=== PATIENT | female | born 1965 | race African-American/Black ===

== ENCOUNTER 2016-12-07 15:42 | Inpatient (IN) | payer OTHER ==
[2016-12-07 17:28] VITALS: BMI 24.0
--- NOTE | 2016-12-07 19:47 | HP ---
CIWA Score - CIWA Score Nausea/Vomitin-Mild Nausea/No Vomiting Muscle Tremors: 4-Moderate,w/Arms Extend Anxiety: 4-Mod. Anxious/Guarded Agitation: 4-Moderately Restless Paroxysmal Sweats: 1-Minimal Palms Moist Orientation: 1-Uncertain about Date Tacttile Disturbances: 0-None Auditory Disturbances: 0-None Visual Disturbances: 0-None Headache: 1-Very Mild CIWA-Ar Total Score: 16 Admission ROS BHS - HPI Chief Complaint: withdrawal sx Allergies/Adverse Reactions: Allergies Allergy/AdvReac Type Severity Reaction Status Date / Time Penicillins Allergy Severe Hives Verified 12/07/16 19:21 History of Present Illness: 51 years old female with long history of alcohol cocaine marijuana nicotine dependence has positive ppd denies mental illness is admitted to detox Exam Limitations: No Limitations - Ebola screening Have you traveled outside of the country in the last 21 days: No Have you had contact with anyone from an Ebola affected area: No Have you been sick,other than usual withdrawal symptoms: No Do you have a fever: No - Review of Systems Constitutional: Chills, Loss of Appetite, Changes in sleep, Unintentional Wgt. Loss, Unexplained wgt Loss EENT: reports: Other (glaucoma right eye no treatment) Respiratory: reports: No Symptoms reported Cardiac: reports: No Symptoms Reported GI: reports: Nausea, Poor Appetite, Poor Fluid Intake, Abdominal cramping : reports: No Symptoms Reported Musculoskeletal: reports: No Symptoms Reported Integumentary: reports: No Symptoms Reported Neuro: reports: Tremors Endocrine: reports: No Symptoms Reported Hematology: reports: No Symptoms Reported Psychiatric: reports: No Sypmtoms Reported, Judgement Intact, Mood/Affect Appropiate Other Systems: Reviewed and Negative Patient History - Patient Medical History Hx Anemia: No Hx Asthma: No Hx Chronic Obstructive Pulmonary Disease (COPD): No Hx Cancer: No Hx Cardiac Disorders: No Hx Congestive Heart Failure: No Hx Hypertension: No Hx Hypercholesterolemia: No Hx Pacemaker: No HX Cerebrovascular Accident: No Hx Seizures: No Hx Dementia: No Hx Diabetes: No Hx Gastrointestinal Disorders: No Hx Liver Disease: No Hx Genitourinary Disorders: No Hx Sexually Transmitted Disorders: No Hx Renal Disease (ESRD): No Hx Thyroid Disease: No Hx Human Immunodeficiency Virus (HIV): No Hx Hepatitis C: No Hx Depression: No Hx Suicide Attempt: No Hx Bipolar Disorder: No Hx Schizophrenia: No - Patient Surgical History Past Surgical History: No - PPD History Previous Implant?: Yes Documented Results: Positive w/o proof Implanted On Prior [facility] Admission?: No Results: Hx. Positive PPD to be Administered?: No - Reproductive History Patient is a Female of Child Bearing Age (11 -55 yrs old): Yes Last Menstrual Period: 02/17/15 Patient : No - Smoking Cessation Smoking history: Current every day smoker Have you smoked in the past 12 months: Yes Aproximately how many cigarettes per day: 20 Cigars Per Day: 0 Hx Chewing Tobacco Use: No Initiated information on smoking cessation: Yes 'Breaking Loose' booklet given: 12/07/16 - Substance & Tx. History Hx Alcohol Use: Yes Hx Substance Use: Yes Substance Use Type: Alcohol, Cocaine, Marijuana Hx Substance Use Treatment: No - Substances Abused Alcohol Route: Oral Frequency: Daily Amount used: Vodka 1 pint, beer 6 pack Age of first use: 19 Date of Last Use: 12/06/16 Cocaine Route: Smoking Frequency: Daily Amount used: $200 Age of first use: 25 Date of Last Use: 12/06/16 Family Disease History - Family Disease History Family Disease History: Heart Disease: Mother, [place]: Mother, Sister, Other: Father (), Brother (no contact) Admission Physical Exam S - Vital Signs Vital Signs: Vital Signs - 24 hr 12/07/16 17:23 Temperature 96.3 F L Pulse Rate 59 L Respiratory 18 Rate Blood Pressure 109/42 - Physical General Appearance: Yes: Appropriately Dressed, Mild Distress, Thin, Tremorous, Irritable, Sweating, Anxious HEENTM: Yes: Hearing grossly Normal, Normal ENT Inspection, Normocephalic, Normal Voice Respiratory: Yes: Chest Non-Tender, Lungs Clear, Normal Breath Sounds, No Respiratory Distress, No Accessory Muscle Use Neck: Yes: Supple, Trachea in good position Breast: Yes: Breasts Symetrical Cardiology: Yes: Regular Rhythm, S1, S2, Bradycardia Abdominal: Yes: Non Tender, Soft Genitourinary: Yes: Within Normal Limits Back: Yes: Normal Inspection Musculoskeletal: Yes: full range of Motion, Gait Steady Extremities: Yes: Normal Inspection, Normal Range of Motion, Non-Tender, Tremors Neurological: Yes: Alert, Motor Strength 5/5, Normal Mood/Affect, Normal Response Integumentary: Yes: Warm Lymphatic: Yes: Within Normal Limits - Diagnostic (1) Alcohol dependence with uncomplicated withdrawal Current Visit: Yes Status: Acute (2) Positive PPD, treated Current Visit: Yes Status: Resolved (3) Nicotine dependence Current Visit: Yes Status: Acute Qualifiers: Nicotine product type: cigarettes Substance use status: in withdrawal Qualified Code(s): F17.213 - Nicotine dependence, cigarettes, with withdrawal Cleared for Admission [facility] - Detox or Rehab [facility] Level of Care: Medically Managed Detox Regimen/Protocol: Librium [facility] Breath Alcohol Content Breath Alcohol Content: 0 Urine Pregancy Test - Result Urine Test Results: Negative- NO Line Present Urine Drug Screen - Results Drug Screen Negative: No Urine Drug Screen Results: THC-Marijuana, NAWAF-Cocaine
[2016-12-07] MEDS ORDERED: MENTHOL/PHENOL 1 EACH UD MM PRN (19:53)
[2016-12-07] MEDS ORDERED: ACETAMINOPHEN 325 MG TABLET (FP) PO PRN (19:53)
[2016-12-07] MEDS ORDERED: chlordiazePOXIDE HCL 25 MG CAPSULE PO PRN (19:53)
[2016-12-07] MEDS ORDERED: MAG HYDROX/AL HYDROX/SIMETH 30 ML UNIT-DOSE CUP PO PRN (19:53)
[2016-12-07] MEDS ORDERED: IBUPROFEN 400 MG TABLET (FP) PO PRN (19:53)
[2016-12-07] MEDS ORDERED: hydrOXYzine PAMOATE 50 MG CAPSULE (FP) PO PRN (19:53)
[2016-12-07] MEDS ORDERED: NICOTINE POLACRILEX 4 MG GUM BC PRN (19:53)
[2016-12-07] MEDS ORDERED: MAGNESIUM HYDROX 2400MG/30ML ORAL SUSPENSION 30 ML CUP PO PRN (19:53)
[2016-12-07] MEDS ORDERED: MAGNESIUM CITRATE 300 ML BOTTLE PO PRN (19:53)
[2016-12-07] MEDS ORDERED: P-EPHED 60MG/TRIPROLIDI 2.5MG TABLET PO PRN (19:53)
[2016-12-07] MEDS ORDERED: diphenhydrAMINE HCL 50 MG CAPSULE PO PRN (19:53)
[2016-12-07] MEDS ORDERED: guaiFENesin/D-METHORPHAN HB 10 ML UNIT-DOSE CUPS PO PRN (19:53)
[2016-12-07] MEDS ORDERED: LOPERAMIDE HCL 2 MG CAPSULE PO PRN (19:53)
[2016-12-07] MEDS ORDERED: NICOTINE 21 MG/24 HOURS TOPICAL PATCH TD PRN (19:55)
[2016-12-07] MEDS: THIAMINE HCL 100 MG TABLET (FP) PO SCH (23:47)
[2016-12-07] MEDS: chlordiazePOXIDE HCL 25 MG CAPSULE PO SCH (23:47)
[2016-12-08 02:35] LABS: URINE APPEARANCE CLOUDY; URINE BILIRUBIN NEGATIVE (NEGATIVE); URINE BLOOD NEGATIVE (NEGATIVE); URINE COLOR YELLOW; URINE GLUCOSE (UA) NEGATIVE (NEGATIVE); URINE KETONE NEGATIVE (NEGATIVE); URINE NITRITE NEGATIVE (NEGATIVE); URINE PROTEIN NEGATIVE (NEGATIVE); URINE UROBILINOGEN NEGATIVE E.U./dl (0.2-1.0)
[2016-12-08 02:37] LABS: URINE LEUK ESTERASE 1+ (NEGATIVE)
[2016-12-08 02:44] LABS: URIC ACID CRYSTALS RARE /hpf (NONE SEEN); URINE BACTERIA FEW /hpf (NONE SEEN); URINE MUCUS RARE; URINE RBC <1 /hpf (0-3); URINE WBC 13 /hpf (3-5)
[2016-12-08] MEDS: chlordiazePOXIDE HCL 25 MG CAPSULE PO SCH ×4 (06:10→22:08)
--- NOTE | 2016-12-08 09:38 | PN ---
[facility] CIWA - CIWA Score Nausea/Vomitin Muscle Tremors: 2 Anxiety: 2 Agitation: 2 Paroxysmal Sweats: 3 Orientation: 0-Oriented Tacttile Disturbances: 1-Very Mild Itch/Numbness Auditory Disturbances: 0-None Visual Disturbances: 0-None Headache: 0-None Present CIWA-Ar Total Score: 12 [facility] Progress Note (SOAP) Subjective: interrupted sleep, sweats, Objective: 12/08/16 09:37 Last Vital Signs Temp Pulse Resp BP Pulse Ox 97.9 F 52 L 18 118/67 12/08/16 06:00 12/08/16 06:00 12/08/16 06:00 12/08/16 06:00 Laboratory Tests 12/08/16 00:27 Urine Color Yellow Urine Appearance Cloudy Urine pH 5.0 Urine Protein Negative Urine Glucose (UA) Negative Urine Ketones Negative Urine Blood Negative Urine Nitrite Negative Urine Bilirubin Negative Urine Urobilinogen Negative Ur Leukocyte Esterase 1+ H Urine RBC <1 Urine WBC 13 Ur Epithelial Cells Moderate Uric Acid Crystals Rare Urine Bacteria Few Urine Mucus Rare Laboratory Tests 12/08/16 12/08/16 12/08/16 00:27 07:00 07:00 WBC 4.6 RBC 4.44 Hgb 12.2 Hct 38.4 MCV 86.5 MCHC 31.8 L RDW 15.0 Plt Count 199 MPV 9.3 Sodium Potassium Chloride Carbon Dioxide Anion Gap BUN Creatinine Creat Clearance w eGFR Random Glucose Calcium Total Bilirubin AST ALT Alkaline Phosphatase Total Protein Albumin Urine Color Yellow Urine Appearance Cloudy Urine pH 5.0 Ur Specific [place] 1.025 Urine Protein Negative Urine Glucose (UA) Negative Urine Ketones Negative Urine Blood Negative Urine Nitrite Negative Urine Bilirubin Negative Urine Urobilinogen Negative Ur Leukocyte Esterase 1+ H Urine RBC <1 Urine WBC 13 Ur Epithelial Cells Moderate Uric Acid Crystals Rare Urine Bacteria Few Urine Mucus Rare RPR Titer HIV 1&2 Antibody Screen Negative HIV P24 Antigen Negative 12/08/16 12/08/16 07:00 07:00 WBC RBC Hgb Hct MCV MCHC RDW Plt Count MPV Sodium 143 Potassium 3.9 Chloride 107 Carbon Dioxide 32 Anion Gap 4 L BUN 18 Creatinine 0.8 Creat Clearance w eGFR > 60 Random Glucose 80 Calcium 9.7 Total Bilirubin 0.4 AST 13 L ALT 21 Alkaline Phosphatase 73 Total Protein 6.4 Albumin 3.4 Urine Color Urine Appearance Urine pH Ur Specific [place] Urine Protein Urine Glucose (UA) Urine Ketones Urine Blood Urine Nitrite Urine Bilirubin Urine Urobilinogen Ur Leukocyte Esterase Urine RBC Urine WBC Ur Epithelial Cells Uric Acid Crystals Urine Bacteria Urine Mucus RPR Titer Nonreactive HIV 1&2 Antibody Screen HIV P24 Antigen pt aox3 in nad ambulating Assessment: 12/08/16 13:14 withdrawal sx's abn. ua Plan: withdrawal sx's cont. detox increase fluids ua
[2016-12-08 10:07] LABS: MCH 27.6 pg (25.7-33.7); MCHC 31.8 g/dl (32.0-36.0); MEAN CELL VOLUME 86.5 fl (80-96); MEAN PLT VOLUME 9.3 fl (7.5-11.1); PLATELET COUNT 199 K/MM3 (134-434); WHITE BLOOD COUNT 4.6 K/mm3 (4.0-10.0)
[2016-12-08] MEDS: PRENATAL VITAMINS W/ FOLIC ACID TABLET (FP) PO SCH (10:34)
[2016-12-08 10:41] LABS: HIV 1 & 2 AB NEGATIVE; HIV 1 AGp24 NEGATIVE
[2016-12-08 10:56] LABS: ALBUMIN 3.4 g/dl (3.4-5.0); ALK PHOS 73 U/L (45-117); ANION GAP 4 (8-16); BILIRUBIN,TOTAL 0.4 mg/dL (0.2-1.0); CALCIUM 9.7 mg/dL (8.5-10.1); CO2 32 mmol/L (21-32); CREATININE 0.8 mg/dL (0.55-1.02); GLUCOSE,RANDOM 80 mg/dL (74-106); SGOT/AST 13 U/L (15-37); SGPT/ALT 21 U/L (12-78); TOT PROT 6.4 g/dl (6.4-8.2)
--- NOTE | 2016-12-08 15:50 | EKG ---
Test Reason : Blood Pressure : / mmHG Vent. Rate : 057 BPM Atrial Rate : 057 BPM P-R Int : 154 ms QRS Dur : 086 ms QT Int : 464 ms P-R-T Axes : 066 072 056 degrees QTc Int : 451 ms SINUS BRADYCARDIA POSSIBLE LEFT ATRIAL ENLARGEMENT BORDERLINE ECG NO PREVIOUS ECGS AVAILABLE Confirmed by COLLINS MAJOR, GISELA ([id number]) on 12/08/2016 3:50:11 PM Referred By: Confirmed By:GISELA GUADALUPE MD
[2016-12-08] MEDS: THIAMINE HCL 100 MG TABLET (FP) PO SCH (22:08)
[2016-12-09] MEDS: chlordiazePOXIDE HCL 25 MG CAPSULE PO SCH ×3 (07:47→18:21)
--- NOTE | 2016-12-09 09:59 | PN ---
[facility] CIWA - CIWA Score Nausea/Vomitin-No Nausea/No Vomiting Muscle Tremors: 3 Anxiety: 4-Mod. Anxious/Guarded Agitation: 3 Paroxysmal Sweats: 3 Orientation: 0-Oriented Tacttile Disturbances: 0-None Auditory Disturbances: 0-None Visual Disturbances: 0-None Headache: 0-None Present CIWA-Ar Total Score: 13 S Progress Note (SOAP) Subjective: Sweating,interrupted sleep,restless,tremors,anxiety Objective: 12/09/16 09:57 Vital Signs - 8 hr 12/09/16 12/09/16 03:30 06:00 Temperature 96.4 F L Pulse Rate 57 L Respiratory 18 18 Rate Blood Pressure 113/67 Laboratory Last Values WBC 4.6 K/mm3 (4.0-10.0) 12/08/16 07:00 RBC 4.44 M/mm3 (3.60-5.2) 12/08/16 07:00 Hgb 12.2 GM/dL (10.7-15.3) 12/08/16 07:00 Hct 38.4 % (32.4-45.2) 12/08/16 07:00 MCV 86.5 fl (80-96) 12/08/16 07:00 MCHC 31.8 g/dl (32.0-36.0) L 12/08/16 07:00 RDW 15.0 % (11.6-15.6) 12/08/16 07:00 Plt Count 199 K/MM3 (134-434) 12/08/16 07:00 MPV 9.3 fl (7.5-11.1) 12/08/16 07:00 Sodium 143 mmol/L (136-145) 12/08/16 07:00 Potassium 3.9 mmol/L (3.5-5.1) 12/08/16 07:00 Chloride 107 mmol/L (98-107) 12/08/16 07:00 Carbon Dioxide 32 mmol/L (21-32) 12/08/16 07:00 Anion Gap 4 (8-16) L 12/08/16 07:00 BUN 18 mg/dL (7-18) 12/08/16 07:00 Creatinine 0.8 mg/dL (0.55-1.02) 12/08/16 07:00 Creat Clearance w eGFR > 60 (>60) 12/08/16 07:00 Random Glucose 80 mg/dL (74-106) 12/08/16 07:00 Calcium 9.7 mg/dL (8.5-10.1) 12/08/16 07:00 Total Bilirubin 0.4 mg/dL (0.2-1.0) 12/08/16 07:00 AST 13 U/L (15-37) L 12/08/16 07:00 ALT 21 U/L (12-78) 12/08/16 07:00 Alkaline Phosphatase 73 U/L (45-117) 12/08/16 07:00 Total Protein 6.4 g/dl (6.4-8.2) 12/08/16 07:00 Albumin 3.4 g/dl (3.4-5.0) 12/08/16 07:00 Urine Color Yellow 12/08/16 00:27 Urine Appearance Cloudy 12/08/16 00:27 Urine pH 5.0 (5.0-8.0) 12/08/16 00:27 Ur Specific [place] 1.025 (1.005-1.025) 12/08/16 00:27 Urine Protein Negative (NEGATIVE) 12/08/16 00:27 Urine Glucose (UA) Negative (NEGATIVE) 12/08/16 00:27 Urine Ketones Negative (NEGATIVE) 12/08/16 00:27 Urine Blood Negative (NEGATIVE) 12/08/16 00:27 Urine Nitrite Negative (NEGATIVE) 12/08/16 00:27 Urine Bilirubin Negative (NEGATIVE) 12/08/16 00:27 Urine Urobilinogen Negative E.U./dl (0.2-1.0) 12/08/16 00:27 Ur Leukocyte Esterase 1+ (NEGATIVE) H 12/08/16 00:27 Urine RBC <1 /hpf (0-3) 12/08/16 00:27 Urine WBC 13 /hpf (3-5) 12/08/16 00:27 Ur Epithelial Cells Moderate /hpf (FEW) 12/08/16 00:27 Uric Acid Crystals Rare /hpf (NONE SEEN) 12/08/16 00:27 Urine Bacteria Few /hpf (NONE SEEN) 12/08/16 00:27 Urine Mucus Rare 12/08/16 00:27 RPR Titer Nonreactive (NONREACTIVE) 12/08/16 07:00 Hepatitis C Antibody <0.1 s/co ratio (0.0-0.9) 12/07/16 07:00 HIV 1&2 Antibody Screen Negative 12/08/16 07:00 HIV P24 Antigen Negative 12/08/16 07:00 labs noted Assessment: 12/09/16 09:58 Withdrawal sx. Plan: Continue detox
[2016-12-09] MEDS: PRENATAL VITAMINS W/ FOLIC ACID TABLET (FP) PO SCH (10:40)
[2016-12-09 19:33] LABS: URINE APPEARANCE CLEAR; URINE BILIRUBIN NEGATIVE (NEGATIVE); URINE BLOOD NEGATIVE (NEGATIVE); URINE COLOR LTYELLOW; URINE GLUCOSE (UA) NEGATIVE (NEGATIVE); URINE KETONE NEGATIVE (NEGATIVE); URINE LEUK ESTERASE NEGATIVE (NEGATIVE); URINE NITRITE NEGATIVE (NEGATIVE); URINE PROTEIN NEGATIVE (NEGATIVE); URINE UROBILINOGEN NEGATIVE E.U./dl (0.2-1.0)
[2016-12-09] MEDS: chlordiazePOXIDE 5 MG CAPSULE PO SCH (22:05)
[2016-12-09] MEDS: THIAMINE HCL 100 MG TABLET (FP) PO SCH (22:05)
[2016-12-10] MEDS: chlordiazePOXIDE 5 MG CAPSULE PO SCH ×3 (06:27→16:49)
[2016-12-10] MEDS: PRENATAL VITAMINS W/ FOLIC ACID TABLET (FP) PO SCH (10:34)
--- NOTE | 2016-12-10 11:33 | PN ---
[facility] Progress Note (SOAP) Subjective: ALERT,IRRITABLE,INTERRUPTED SLEEP Objective: 12/10/16 11:32 Vital Signs Temperature 100.8 F H 12/10/16 10:18 Pulse Rate 89 12/10/16 10:18 Respiratory Rate 18 12/10/16 10:18 Blood Pressure 125/76 12/10/16 10:18 O2 Sat by Pulse Oximetry (%) Assessment: 12/10/16 11:32 WITHDRAWAL SYMPTOM Plan: CONTINUE DETOX
[2016-12-10] MEDS: chlordiazePOXIDE HCL 10 MG CAPSULE PO SCH (22:11)
[2016-12-10] MEDS: THIAMINE HCL 100 MG TABLET (FP) PO SCH (22:11)
[2016-12-11] MEDS: chlordiazePOXIDE HCL 10 MG CAPSULE PO SCH ×3 (06:00→17:45)
[2016-12-11] MEDS: PRENATAL VITAMINS W/ FOLIC ACID TABLET (FP) PO SCH (10:38)
--- NOTE | 2016-12-11 12:26 | DS ---
[facility] Detox Discharge Summary Admission Date: 12/07/16 Discharge Date: 12/11/16 - History Present History: Alcohol Dependence Additional Comments: ADVISED PATIENT TO FOLLOW-UP WITH [facility]INE [employer] FREQUENCY CHECKER / REHAB MEDICAL PROVIDER AFTER DISCHARGE FROM DETOX [facility]. Pertinent Past History: History of Positive PPD (Treated). - Physical Exam Results Vital Signs: Vital Signs Temperature 97.7 F 12/11/16 06:00 Pulse Rate 50 L 12/11/16 06:00 Respiratory Rate 18 12/11/16 06:00 Blood Pressure 105/66 12/11/16 06:00 O2 Sat by Pulse Oximetry (%) Pertinent Admission Physical Exam Findings: WITHDRAWAL SYMPTOMS. Laboratory Tests 12/07/16 12/08/16 12/08/16 07:00 00:27 07:00 WBC RBC Hgb Hct MCV MCHC RDW Plt Count MPV Sodium Potassium Chloride Carbon Dioxide Anion Gap BUN Creatinine Creat Clearance w eGFR Random Glucose Calcium Total Bilirubin AST ALT Alkaline Phosphatase Total Protein Albumin Urine Color Yellow Urine Appearance Cloudy Urine pH 5.0 Ur Specific [place] 1.025 Urine Protein Negative Urine Glucose (UA) Negative Urine Ketones Negative Urine Blood Negative Urine Nitrite Negative Urine Bilirubin Negative Urine Urobilinogen Negative Ur Leukocyte Esterase 1+ H Urine RBC <1 Urine WBC 13 Ur Epithelial Cells Moderate Uric Acid Crystals Rare Urine Bacteria Few Urine Mucus Rare RPR Titer Hepatitis C Antibody <0.1 HIV 1&2 Antibody Screen Negative HIV P24 Antigen Negative 12/08/16 12/08/16 12/08/16 07:00 07:00 07:00 WBC 4.6 RBC 4.44 Hgb 12.2 Hct 38.4 MCV 86.5 MCHC 31.8 L RDW 15.0 Plt Count 199 MPV 9.3 Sodium 143 Potassium 3.9 Chloride 107 Carbon Dioxide 32 Anion Gap 4 L BUN 18 Creatinine 0.8 Creat Clearance w eGFR > 60 Random Glucose 80 Calcium 9.7 Total Bilirubin 0.4 AST 13 L ALT 21 Alkaline Phosphatase 73 Total Protein 6.4 Albumin 3.4 Urine Color Urine Appearance Urine pH Ur Specific [place] Urine Protein Urine Glucose (UA) Urine Ketones Urine Blood Urine Nitrite Urine Bilirubin Urine Urobilinogen Ur Leukocyte Esterase Urine RBC Urine WBC Ur Epithelial Cells Uric Acid Crystals Urine Bacteria Urine Mucus RPR Titer Nonreactive Hepatitis C Antibody HIV 1&2 Antibody Screen HIV P24 Antigen 12/09/16 Unknown WBC RBC Hgb Hct MCV MCHC RDW Plt Count MPV Sodium Potassium Chloride Carbon Dioxide Anion Gap BUN Creatinine Creat Clearance w eGFR Random Glucose Calcium Total Bilirubin AST ALT Alkaline Phosphatase Total Protein Albumin Urine Color Ltyellow Urine Appearance Clear Urine pH 7.0 D Ur Specific [place] 1.015 Urine Protein Negative Urine Glucose (UA) Negative Urine Ketones Negative Urine Blood Negative Urine Nitrite Negative Urine Bilirubin Negative Urine Urobilinogen Negative Ur Leukocyte Esterase Negative Urine RBC Urine WBC Ur Epithelial Cells Uric Acid Crystals Urine Bacteria Urine Mucus RPR Titer Hepatitis C Antibody HIV 1&2 Antibody Screen HIV P24 Antigen LABS NOTED. - Treatment Hospital Course: Detox Protocol Followed, Detoxed Safely, Responded well, Discharged Condition Good, Rehab Referral Accepted Patient [facility] - Medication Discharge Medications: Ambulatory Orders NK [No Known Home Medication] 12/07/16 - Diagnosis (1) Alcohol dependence with uncomplicated withdrawal Current Visit: Yes Status: Acute (2) Nicotine dependence Current Visit: Yes Status: Chronic Qualifiers: Nicotine product type: cigarettes Substance use status: in withdrawal Qualified Code(s): F17.213 - Nicotine dependence, cigarettes, with withdrawal (3) Positive PPD, treated Current Visit: Yes Status: Resolved - AMA Did Patient Leave Against Medical Advice: No
[2016-12-11] MEDS: THIAMINE HCL 100 MG TABLET (FP) PO SCH (21:24)
[2016-12-12] MEDS: PRENATAL VITAMINS W/ FOLIC ACID TABLET (FP) PO SCH (09:52)
--- NOTE | 2016-12-12 10:10 | HP ---
Psychiatrist Admission - Data Date of interview: 12/12/16 Admission source: [facility] Identifying data: This is the first admission to [address] [place] [address] rehabilitation for this 51 years old female single mother of 31 yo son,resides alone,supported by [employer]. Medical History: unremarkable Psychiatric History: denies psychiatric history,treatment,but somewhat irritable ,demanding,critisizing ,defensive during the interview.Patient is not willing to consider any psychiatric medications. Physical/Sexual Abuse/Trauma History: denies Vital Signs: Vital Signs - 24 hr 12/12/16 12/12/16 12/12/16 00:30 03:30 07:44 Temperature 97.7 F Pulse Rate 58 L Respiratory 18 18 18 Rate Blood Pressure 122/75 Allergies/Adverse Reactions: Allergies Allergy/AdvReac Type Severity Reaction Status Date / Time Penicillins Allergy Severe Hives Verified 12/07/16 19:21 Date of last physical exam: 12/07/16 Concur with the findings of this exam: Yes - Substance Abuse/Tx History Hx Alcohol Use: Yes (reports drinking since 19 yo ,I pint of vodka ,6 packs of beer daily) Hx Substance Use: Yes (crack/cocaine since 25 yo,marijuana since 10 yo) Substance Use Type: Alcohol, Cocaine, Marijuana Hx Substance Use Treatment: Yes (this is her first inpatient rehabilitation treatment) - Admission Criteria Previous failed treatment: Yes Poor recovery environment: Yes Comorbidities: Yes Lacks judgement: Yes Mental Status Exam - Mental Status Exam Alert and Oriented to: Time, Place, Person Cognitive Function: Grossly Intact Patient Appearance: Unkempt Mood: Irritable Affect: Labile Patient Behavior: Guarded Speech Pattern: Clear Voice Loudness: Normal Thought Process: Goal Oriented Thought Disorder: Not Present Hallucinations: Denies Suicidal Ideation: Denies Homicidal Ideation: Denies Insight/Judgement: Poor Sleep: Fair Appetite: Good Muscle strength/Tone: Normal Gait/Station: Normal Psychiatric Findings - Problem List ([place] 1, 2,3) (1) Cocaine dependence in controlled environment Current Visit: Yes Status: Acute (2) Nicotine dependence Current Visit: Yes Status: Chronic Qualifiers: Nicotine product type: cigarettes Substance use status: in withdrawal Qualified Code(s): F17.213 - Nicotine dependence, cigarettes, with withdrawal (3) Positive PPD, treated Current Visit: Yes Status: Resolved (4) Substance induced mood disorder Current Visit: Yes Status: Chronic (5) Cocaine dependence Current Visit: Yes Status: Chronic (6) Cannabis dependence Current Visit: Yes Status: Chronic - Initial Treatment Plan Initial Treatment Plan: Patient is not willing to start psychotropic medications at present.will monitor progress,consider mood stabilizers if needed.
[2016-12-12] MEDS: THIAMINE HCL 100 MG TABLET (FP) PO SCH (21:21)
[2016-12-13] MEDS: PRENATAL VITAMINS W/ FOLIC ACID TABLET (FP) PO SCH (10:26)
[2016-12-13] MEDS: THIAMINE HCL 100 MG TABLET (FP) PO SCH (21:21)
[2016-12-14 06:55] VITALS: BP 119/66; PULSE 99; TEMP 98.1
[2016-12-14] MEDS: PRENATAL VITAMINS W/ FOLIC ACID TABLET (FP) PO SCH (10:52)
--- NOTE | 2016-12-14 15:21 | PN ---
Psychiatric Progress Note Vital Signs: Vital Signs Period Temp Pulse Resp BP Sys/Veras Pulse Ox Last 24 Hr 98.1 F 99 16-18 119/66 Date of Session: 12/14/16 Chief Complaint:: Discharge visit HPI: Patient addressd Cocaine,Cannabis dependence comorbid with substance induced mood disorder. ROS: Unremarkable. Current Medications: Active Medications Generic Name Dose Route Start Last Admin Trade Name Freq PRN Reason Stop Dose Admin Acetaminophen 650 mg 12/07/16 19:53 Tylenol - PO Q4H PRN FEVER OR PAIN Al Hydroxide/Mg Hydroxide 30 ml 12/07/16 19:53 Mylanta Oral Suspension - PO Q6H PRN DYSPEPSIA Diphenhydramine HCl 50 mg 12/07/16 19:53 Benadryl - PO HSMR1 PRN INSOMNIA Eucalyptus/Menthol/Phenol/Sorbitol 1 each 12/07/16 19:53 Cepastat Lozenge - MM Q4H PRN SORE THROAT Guaifenesin 10 ml 12/07/16 19:53 Robitussin Dm - PO Q6H PRN COUGH Hydroxyzine Pamoate 50 mg 12/07/16 19:53 Vistaril - PO Q4H PRN AGITATION Ibuprofen 400 mg 12/07/16 19:53 Motrin - PO Q6H PRN SEVERE PAIN Loperamide HCl 4 mg 12/07/16 19:53 Imodium - PO Q6H PRN DIARRHEA Magnesium Citrate 300 ml 12/07/16 19:53 Citroma - PO Q48H PRN CONSTIPATION Magnesium Hydroxide 30 ml 12/07/16 19:53 12/08/16 22:10 Milk Of Magnesia - PO 30 ml DAILY PRN Administration CONSTIPATION Nicotine 21 mg 12/07/16 19:55 Nicoderm Patch - TD DAILY PRN WITHDRAWAL(CONT SUBST) Nicotine Polacrilex 4 mg 12/07/16 19:53 Nicorette Gum - BC Q2H PRN NICOTINE REPLACEMENT RX Multivit/Folic Acid/Iron 1 tab 12/08/16 10:00 12/14/16 10:52 Vitamins (Sjr) - PO Not Given DAILY HUMERA Pseudoephedrine/Triprolidine 1 combo 12/07/16 19:53 Actifed - PO TID PRN NASAL CONGESTION Thiamine HCl 100 mg 12/07/16 22:00 12/13/16 21:21 Vitamin B1 - PO Not Given HS HUMERA Current Side Effect: No Lab tests ordered: No Lab tests reviewed: Yes Provider note:: Case was discussed with team including psychiatrist,clinical fire supervisor,counselor and register nurse.Patient was invited for the team meeting but she refused to participate in the meeting ,saying: I better leave this place.She was seen in my office individually.Patient didnt meet her treatment goals and will continue to address her issues on outpatient basis. Patient has been recommended to utilize her coping skills,support system to maintain recovery. Patient is stable for discharge today. Total face to face time:: 30 Mental Status Exam - Mental Status Exam Alert and Oriented to: Time, Place, Person Cognitive Function: Grossly Intact Patient Appearance: Inappropriate Mood: Irritable Affect: Labile Patient Behavior: Uncooperative, Guarded, Resitive to Care Speech Pattern: Clear Voice Loudness: Mildly Loud Thought Process: Goal Oriented Thought Disorder: Being Controlled Hallucinations: Denies Suicidal Ideation: Denies Homicidal Ideation: Denies Insight/Judgement: Poor Sleep: Fair Appetite: Good Muscle strength/Tone: Normal Gait/Station: Normal Psychiatric Treatment Plan - Problem List (1) Nicotine dependence Qualifiers: Nicotine product type: cigarettes Substance use status: in withdrawal Qualified Code(s): F17.213 - Nicotine dependence, cigarettes, with withdrawal
== END 2016-12-14 03:11 | disposition home or self-care (01) | DRG 895 ==
LOC: YASAS 15:42 → Y6N 19:39 → Y3E 12-11 10:56
PROVIDERS: ADMIT Internal Medicine; ATTEND Internal Medicine
PROC: HZ2ZZZZ Detoxification Services for Substance Abuse Treatment (ICD-10-PCS; principal; 2016-12-07)
PROC: HZ42ZZZ Group Counseling for Substance Abuse Treatment, Cognitive-Behavioral (ICD-10-PCS; 2016-12-11)
DX: F10.230 Alcohol dependence with withdrawal, uncomplicated (principal); F14.20 Cocaine dependence, uncomplicated; F12.20 Cannabis dependence, uncomplicated; F17.210 Nicotine dependence, cigarettes, uncomplicated; F19.24 Other psychoactive substance dependence with psychoactive substance-induced mood disorder; F91.8 Other conduct disorders; R76.11 Nonspecific reaction to tuberculin skin test without active tuberculosis; R82.90 Unspecified abnormal findings in urine; R00.1 Bradycardia, unspecified; Z91.19 Patient's noncompliance with other medical treatment and regimen
CPT/HCPCS: 36415; 71020-TC; 80053; 81003; 81015; 85027; 86593; 86803; 87389; 93005; 93010